=== PATIENT | female | born 1955 | race Caucasian/White ===

== ENCOUNTER 2017-08-14 22:25 | Emergency (ER) | payer SELFPAY ==
[~2017-08-14] VITALS: Ht 157.5 cm; Wt 88.0 kg
[2017-08-14 22:45] VITALS: BP 124/75; PULSE 95; RESP 18; TEMP 98.5; O2SAT 97
--- NOTE | 2017-08-14 23:00 | PD ---
HPI Chief Complaint: Psychiatric Symptoms Time Seen by Provider: 22:41 Travel History International Travel<30 days: No Contact w/Intl Traveler<30days: No Traveled to known affect area: No History of Present Illness HPI Patient is a 62-year-old female presenting to the emergency department under Benites act from [facility]. Patient stated that she feels anxious, depressed and has had thoughts of suicide. Patient states that she thought she would jump out of her window in her apartment. When asked about reasons why she stated "lot of like things are going on". Patient denies any previous suicide attempt. She denies any drug or alcohol use, tobacco use. She denies any physical complaints at this time. Symptom onset is unknown, symptoms severity is moderate. No alleviating factors, unknown exacerbating factors. [facility] Past Medical History Medical History: Denies Significant Hx Social History Tobacco Use: No Allergies-Medications (Allergen,Severity, Reaction): Coded Allergies: No Known Allergies (Unverified , 08/14/17) Review of Systems Except as stated in HPI: all other systems reviewed are Neg Psychiatric: Positive: Anxiety, Depression, Suicidal Ideations Physical Exam Narrative GENERAL: Well-developed, well-nourished, alert female. Presenting in no acute distress. SKIN: Warm and dry. HEAD: Atraumatic. Normocephalic. EYES: Pupils equal and round. No scleral icterus. No injection or drainage. ENT: No nasal bleeding or discharge. Mucous membranes pink and moist. NECK: Trachea midline. No JVD. CARDIOVASCULAR: Regular rate and rhythm. RESPIRATORY: No accessory muscle use. Clear to auscultation. Breath sounds equal bilaterally. GASTROINTESTINAL: Abdomen soft, non-tender, nondistended. Hepatic and splenic margins not palpable. MUSCULOSKELETAL: Extremities without clubbing, cyanosis, or edema. No obvious deformities. NEUROLOGICAL: Awake and alert. No obvious cranial nerve deficits. Motor grossly within normal limits. Five out of 5 muscle strength in the arms and legs. Normal speech. PSYCHIATRIC: Depressed mood and affect; insight and judgment normal. Data Data Last Documented VS Vital Signs Date Time Temp Pulse Resp B/P (MAP) Pulse Ox O2 Delivery O2 Flow Rate FiO2 08/14/17 22:45 98.5 95 18 124/75 (91) 97 Orders Orders Psych Screen (08/14/17 22:36) [facility] Medical Decision Making Medical Screen Exam Complete: Yes Emergency Medical Condition: Yes Medical Record Reviewed: Yes Interpretation(s) Vital Signs Date Time Temp Pulse Resp B/P (MAP) Pulse Ox O2 Delivery O2 Flow Rate FiO2 08/14/17 22:45 98.5 95 18 124/75 (91) 97 Differential Diagnosis Depression versus suicidal ideations versus anxiety versus mood disorder versus other Narrative Course Patient 62-year-old female presenting to the emergency department under Benites act due to suicidal statements made to the previous ED physician. Medical records reviewed. Patient's vital signs are stable. Patient is medically cleared for psychiatric evaluation Diagnosis Primary Impression: Medical clearance for psychiatric admission Condition: Stable Niki Diaz August 14, 2017 23:00
[2017-08-15 05:30] VITALS: BP 112/56; PULSE 89; RESP 18; TEMP 98.2; O2SAT 100
--- NOTE | 2017-08-15 10:46 | PD ---
History of Present Illness Chief Complaint: Psychiatric Symptoms Time Seen by Provider: 10:15 Travel History International Travel<30 Days: No Contact w/Intl Traveler<30days: No Known affected area: No Legal Status Legal Status: Benites Act Benites Act Signed By: DARIANA OLMOS MD [facility] History of Present Illness: Patient is a 62 y/o female, not with three daughters. She is from [place], [place] and is here visiting her daughters in [place]. She is under a Benites Act which states , " I want to kill myself, I lost my job." She presented to [facility] and they transferred her to [facility] for evaluation. Patient states that she is under the care of Dr. Aggarwal, ) for depression. 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 She was in an accident and had left shoulder surgery. She was on disability which ended in February and she does not know if why it was discontinued. She is receiving food stamps. She traveled to [place], [place] 13 days ago to see her daughters Doris Cavanaugh and Syed Cavanaugh. She endorses that she is not suicidal because she loves her daughters. She is currently out of her depression medications and she cannot recall the names of the medications. Chart reviewed and discussed with SUSAN Lindsey. Patient in room J-016. In hospital gown , looks stated age and well groomed. Alert and oriented. Pleasant and euthymic. Good concentration and focus. Ambulatory with steady gait. Voice normal tone, rate and volume. She is pre-occupied with her new phone and being able to call her daughters. She states she is depressed , but will laugh and engage in conversation regarding her struggles over the past few years. Collateral : I spoke with her daughter, Doris Cavanaugh . She states that her mom is visiting her and plans to return to [place]. She states that her mother takes medications for her depression, but she did not pack them. She brought her mother to [facility] to give her medications. I explained to the daughter that we are unable to reach her Psychiatrist on a Wednesday. I gave the daughter the psychiatrist's phone number so she can call him on Wednesday to see if he can e-prescribe her medications to a local retail pharmacy to cover the days she will be in [place]. Patient does have a second daughter Syed Cavanaugh ([phone]). Family has agreed to pick the patient up. Patient is at low risk for self harm. Patient and family will call the patient' s psychiatrist on Wednesday to request that he e-prescribe her depression medications to a local retail pharmacy to cover her medications while she is in [place]. Today is Wednesday and I am unable to reach her psychiatrist to renew her medication for the next 1 -2 weeks. Based on discussion with daughter and patient's presentation will lift the Benites Act. Dx: Depression; Needs medication refill PFSH Past Medical History Narrative Medical Under care fo Dr. Aggarwal [phone] in [place], [place] for depression. Medical History: Denies Significant Hx Psychiatric History Psychiatric History Patient followed by Dr. Solis [phone]. Hx Psychiatric Treatment: Patient denies History of Inpatient Treatment: No Social History Hx Alcohol Use: No Hx Tobacco Use: No Hx Substance Use: No Allergies-Medications (Allergen,Severity, Reaction): Coded Allergies: No Known Allergies (Unverified , 08/14/17) Mental Status Examination Appearance: Appropriate Consciousness: Alert Orientation: Person, Date/Time, Situation Motor Activity: Normal gait Speech: Unremarkable Language: Adequate Fund of Knowledge: Adequate Attention and Concentration: Adequate Memory: Unremarkable Mood: Appropriate Affect: Euthymic Thought Process & Associations: Intact Thought Content: Appropriate Hallucination Type: None Delusion Type: None Suicidal Ideation: No Suicidal Plan: No Suicidal Intention: No Homicidal Ideation: No Homicidal Plan: No Homicidal Intention: No Insight: Adequate Judgment: Adequate MDM Medical Decision Making Medical Record Reviewed: Yes Assessment/Plan Patient is a 62 y.o female who lives in [place], [place] and visiting her daughters in [place], [place]. She did not bring her medications that she takes for her depression. Her daughters took her to [facility] for a medication refill and she was placed under a Benites Act stating she wanted to "kill herself." Patient endorses that she is sad due to loss of her employment, loss of her disability and insomnia. She is under the care of Dr. Aggarwal ) in [place] who prescribes her medications, but she does not know the names of her medications. Today is Wednesday and I am unable to reach her Psychiatrist. I advised the family and patient to call the psychiatrist on Wednesday and he should be able to e-prescribe the medications to a local retail pharmacy to cover her medication needs while she is visiting her family in [place]. Patient is at low risk for self harm. Will lift the Benites Act. Family has agreed to pick her up. Orders Orders Psych Screen (08/14/17 22:36) Diet Regular Basic (08/15/17 Breakfast) Results Vital Signs Date Time Temp Pulse Resp B/P (MAP) Pulse Ox O2 Delivery O2 Flow Rate FiO2 08/15/17 05:30 98.2 89 18 112/56 (74) 100 Room Air 08/14/17 22:45 98.5 95 18 124/75 (91) 97 Diagnosis Primary Impression: Depression Psychiatrically Cleared: Yes Patient Instructions: General Instructions Disposition: 01 DISCHARGE HOME Condition: Stable JeanetteIlsa collazo CHARI August 15, 2017 10:46
[2017-08-15 11:05] VITALS: BP 117/65; PULSE 75; RESP 18; O2SAT 97
--- NOTE | 2017-08-15 11:20 | PD ---
Data Data Last Documented VS Vital Signs Date Time Temp Pulse Resp B/P (MAP) Pulse Ox O2 Delivery O2 Flow Rate FiO2 08/15/17 11:05 75 18 117/65 (82) 97 Room Air 08/15/17 05:30 98.2 Orders Orders Psych Screen (08/14/17 22:36) Diet Regular Basic (08/15/17 Breakfast) Diet Regular Basic (08/15/17 Lunch) MDM Medical Record Reviewed: Yes Supervised Visit with DESIRAE: No Narrative Course Please see previous providers notes. This patient has been cleared by psychiatry. She has no medical issues that would warrant further hospitalization. Her daughter is coming to pick her up. She is stable for discharge. Diagnosis Primary Impression: Depression Patient Instructions: General Instructions Disposition: DISCHARGE HOME Condition: Stable Beau Barbosa August 15, 2017 11:19
== END 2017-08-15 15:15 | disposition home or self-care (01) ==
LOC: NEPJ 22:25
DX: F32.9 Major depressive disorder, single episode, unspecified (principal); F41.9 Anxiety disorder, unspecified; R45.851 Suicidal ideations
CPT/HCPCS: 99285